=== PATIENT | female | born 1980 | race Caucasian/White ===

== ENCOUNTER 2019-07-10 19:45 | Emergency (ER) | payer SELFPAY ==
[2019-07-10 19:49] VITALS: BP 107/70; PULSE 125; RESP 18; TEMP 36.8; O2SAT 100; BMI 21.2
--- NOTE | 2019-07-10 21:05 | ED.VIS.GEN ---
History of Present Illness Chief Complaint: Flank Pain Detail of Chief Complaint: Multiple symptoms and complaints Informant: Patient Onset: Weeks - Set June 26 Context: Sudden Onset Timing: Intermittent Quality: Near syncope, aches, flank pain, acute cystitis DX Location: Generalized Current Severity: Mild Maximum Severity: Moderate Worsened by: Nothing Relieved by: Nothing Associated Symptoms: Myalgias, arthralgias, or syncope Narrative: Patient is a 38-year-old woman who presents with near syncopal episode, body aches, right flank pain. She was diagnosed June 26 with urinary tract infection at outside facility. She does admit to smoking. She denies alcohol or drug use. She states she believes she is having seizures. She has no loss of conscious. There is no loss of postural tone. She states when she gets the symptoms if she is not sitting she sits. There is no incontinence of urine or stool. She has not bitten her tongue. Prior similar symptoms: Yes Recent Illness/Hospitalization: Yes - Past Medical History (1) No significant past medical history Status: Acute Past Medical History - Allergies and Home Meds Allergies/Adverse Reactions: Allergies No Known Allergies Allergy (Verified 07/10/19 19:49) Primary Care Physician: Care Physician,No Primary [Primary Care Provider] - Prior records reviewed: No Past Medical History: None Surgical History: no surgical history Lives: Alone Smoking Status: Heavy Smoker (>10/day) Alcohol: None Drugs: None Review of Systems General: Reports: Fever, Subjective. Denies: Chills, Malaise, Sweats, Weight loss, - Eyes: Reports: Visual changes - bilaterally. Denies: Blurred Vision - bilaterally, Diplopia ENT: Denies: Bilateral ear pain, Rhinorrhea, Sore throat Cardiovascular: Denies: Chest pain, Palpitations, Heart racing Respiratory: Reports: Cough. Denies: Dyspnea, Sputum, Dyspnea on exertion, Orthopnea, Paroxysmal nocturnal dyspnea Gastrointestinal: Reports: Abdominal pain, Nausea. Denies: Vomiting, Diarrhea, Constipation, Melena, Hematochezia Genitourinary: Denies: Dysuria, Hematuria, Frequency Musculoskeletal: Reports: Myalgias, Arthralgias, Back pain. Denies: Neck pain, Swelling, Extremity Pain, -, - Skin: Denies: Rash, Wounds Neurological: Reports: Weakness. Denies: Headache, Parasthesia, Numbness, -, - Endocrine: Denies: Polyuria, Polydipsia Hematologic: Denies: Easy bruising, Easy bleeding Allergy: Denies: Uticaria, Swelling of the mouth Physical Exam Vital Signs/Narrative: Vital Signs Temp Pulse Resp BP Pulse Ox 07/10/19 19:49 98.2 F 125 H 18 107/70 100 Inital Vital Signs reviewed: Yes - Is tachycardic. General: Well nourished, Well developed, No Acute Distress Head: Normocephalic, Atraumatic Eyes: Perrl, EOMI ENT: Moist mucous membranes, No rhinorrhea Neck: Supple, Nontender Cardiovascular: Regular rate, Regular rhythm, No murmurs, Normal S1, Normal S2 Respiratory: No distress, CTA bilaterally, Chest nontender Abdomen: Soft, Nontender, Nondistended, Normal bowel sounds, No masses. Negative for: Hepatomegaly, Splenomegaly, Mass, Pulsatile mass, Ventral hernia, Umbilical hernia Back: Nontender, Normal Inspection. Negative for: CVA tenderness Extremities: Nontender, No edema. Negative for: Calf Tenderness Skin: Normal color, No rash, No Trauma. Negative for: Cyanosis, Diaphoresis, Jaundice Neurological: Alert, Oriented x3, Cranial nerves II-XII grossly intact, Normal Strength, Normal Sensation, Normal DTR Psychological: Normal affect, Normal Mood Diagnostic/Tx/Re-eval Laboratory Results 07/10/19 07/10/19 07/10/19 20:27 20:27 20:27 WBC 7.5 RBC 4.90 Hgb 15.0 Hct 44.4 MCV 90.6 MCH 30.6 MCHC 33.8 RDW Std Deviation 41.3 RDW Coeff of [place] 12.5 Plt Count 292 MPV 10.1 Immature Gran % (Auto) 0.300 Neut % (Auto) 45.6 L Lymph % (Auto) 37.1 [place] % (Auto) 9.6 Eos % (Auto) 6.7 H Baso % (Auto) 0.7 Absolute Neuts (auto) 3.4 Absolute Lymphs (auto) 2.78 Nucleated RBC % 0 Sodium 138 Potassium 3.8 Chloride 105 Carbon Dioxide 29.0 Anion Gap 4 L BUN 18 Creatinine 1.08 H Estim Creat Clear Calc 53.71 Est GFR (MDRD) Af Amer 73 Est GFR (MDRD) Non-Af 60 BUN/Creatinine Ratio 16.7 Glucose 61 L Calcium 8.7 Total Bilirubin 0.20 AST 23 ALT 29 Alkaline Phosphatase 93 Total Protein 7.6 Albumin 3.8 Globulin 3.8 Albumin/Globulin Ratio 1.0 Urine Color Yellow Urine Clarity Clear Urine pH 6.0 Ur Specific [place] 1.015 Urine Protein Negative Urine Glucose (UA) Normal Urine Ketones Negative Urine Occult Blood Negative Urine Nitrite Negative Urine Bilirubin Negative Urine Urobilinogen Normal Ur Leukocyte Esterase Negative Urine RBC 0-5 SEEN Urine WBC 0-5 SEEN Ur Squamous Epith Cells 5-10 SEEN Urine Bacteria 0 SEEN Urine Mucus 0 SEEN Since CBC, conference of metabolic panel and UA are unremarkable. - Medical Decision Making The patient's numerous symptoms will obtain blood work, since she was diagnosed with recent urinary tract infection will obtain UA. She was placed on a monitor. There is no ectopy. Since patient's work-up is unremarkable and she has a unremarkable exam will discharge to follow-up with her physician. ED Disposition - Plan for ED Patient: Disposition: Home or Assisted Living Diagnosis: Myalgia, Acute right flank pain, Weakness Referrals: Care Physician,No Primary [Primary Care Provider] - Ana Rios [NON-STAFF] - 3-5 Days if not improving
[2019-07-10 21:11] LABS: Bacteria 0 SEEN /hpf (None Seen); Mucous, Urine 0 SEEN /hpf (<or=2+)
[2019-07-10 21:13] LABS: Color, Urine Yellow (Yellow); Glucose, Dipstick Normal (Normal); Ketone-Dipstick Negative (Negative); Leukocyte Esterase-Dipstick Negative /ul (Negative); Nitrite-Dipstick Negative (Negative); Occult Blood-Urine Negative /ul (Negative); Protein-Dipstick Negative (Negative); Specific Gravity, Urine 1.015 (1.002-1.030); Urine Bilirubin Dipstick Negative (Negative); Urine Clarity Clear (Clear); Urine Urobilinogen Normal (Normal)
[2019-07-10 21:14] LABS: Absolute Lymphocyte Count 2.78 X10^3/uL (0.83-4.51); Absolute Neutrophil Count 3.4 X10^3/uL (2.0-7.7); Basophil# 0.05 X10^3/uL; Basophil% 0.7 % (0-1); Eosinophils% 6.7 % (0-5); Hematocrit 44.4 % (37-47); Lymphocyte # 2.78 X10^3/ul (4.0); Lymphocyte % 37.1 % (19-41); Mean Corp Hgb Conc 33.8 g/dL (32-36); Mean Corpuscular Hgb 30.6 pg (27.0-32.0); Mean Corpuscular Volume 90.6 fL (81-99); Mean Platelet Vol. 10.1 fl (6.2-12.0); Monocyte# 0.72 X10^3/uL; Monocyte% 9.6 % (0-10); NRBC Flagged by Analyzer 0 % (0-5); Neutrophil # 3.42 X10^3/uL (2.7-7.7); Neutrophil % 45.6 % (47-70); Platelet Count 292 K/mm3 (150-450); RBC Distribution Width CV 12.5 % (11.6-14.6); RBC Distribution Width SD 41.3 fl (35.1-43.9); White Blood Count 7.5 K/mm3 (4.4-11.0)
[2019-07-10 21:24] LABS: Red Blood Cells-Urine 0-5 SEEN /hpf (0-5); Squamous Epithelial Cells - UA 5-10 SEEN /hpf (5-10); White Blood Cells 0-5 SEEN /hpf (0-5)
[2019-07-10 21:25] LABS: AST(SGOT) 23 U/L (15-37); Alanine Aminotransfer ALT/SGPT 29 U/L (13-56); Albumin, Serum 3.8 g/dL (3.2-5.0); Alkaline Phosphatase 93 U/L (45-117); Anion Gap 4 (5-15); BUN 18 mg/dL (7-18); BUN/Creat Ratio 16.7 RATIO (10-20); Calcium,Total 8.7 mg/dL (8.5-10.1); Chloride 105 mmol/L (98-107); Creatinine, Serum 1.08 mg/dL (0.55-1.02); EST Glomerular Filtration Rate 60 mL/min (>60); Est Glom Filt Rate - Afr Amer 73 mL/min (>60); Estimated Creatinine Clearance 53.71 ml/min; Globulin 3.8 g/dL (2.2-4.2); Glucose 61 mg/dL (74-106); Potassium 3.8 mmol/L (3.5-5.1); Protein, Total 7.6 g/dL (6.4-8.2); Sodium Level 138 mmol/L (136-145)
--- NOTE | 2019-07-10 23:09 | ED.DCSUM_ITS ---
- ER Visit Summary Date of Service: 07/10/19 Chief Complaint: [] History of Present Illness: The patient is a 38 F [] Physical Examination: [] Test Results: [] Emergency Department Course and Treatment: [] Treatment Plan: [] Disposition: [] Impression: [] This note was generated with [employer] dictation software. It may contain incorrect words, spelling, and punctuation that were not noted in review of the chart prior to signing ED Disposition - Plan for ED Patient: Disposition: Home or Assisted Living Diagnosis: Myalgia, Acute right flank pain, Weakness Instructions: WEAKNESS, Unk Cause, FLANK PAIN, Uncertain Cause Referrals: Ana Rios [NON-STAFF] - 3-5 Days if not improving Care Physician,No Primary [Primary Care Provider] -
[2019-07-10 23:16] VITALS: BP 97/66; PULSE 97; RESP 18; O2SAT 98
== END 2019-07-10 23:18 | disposition home or self-care (01) ==
PROVIDERS: Emergency Provider Emergency Medicine
DX: M79.10 Myalgia, unspecified site (principal); R10.9 Unspecified abdominal pain; R53.1 Weakness; H53.9 Unspecified visual disturbance; R05 Cough; R11.0 Nausea; M54.9 Dorsalgia, unspecified; R55 Syncope and collapse; Z87.442 Personal history of urinary calculi; F17.200 Nicotine dependence, unspecified, uncomplicated
CPT/HCPCS: 80053; 81001; 85025; 99284; A4216